=== PATIENT | female | born 1935 | race Caucasian/White ===

== ENCOUNTER 2024-01-26 13:28 | Emergency (ER) | payer OTHER, SELFPAY ==
[2024-01-26 13:37] VITALS: BP 133/64; BMI 21.6
[2024-01-26 14:38] LABS: % Basophils 0.5 % (0-2); % Eosinophils 1.1 % (0-6); % Immature Granulocytes 0.3 % (0-0.5); % Lymphocytes 28.6 % (20.5-51.1); % Monocytes 11.2 % (1.7-9.3); % Neutrophils 58.3 % (42.2-75.2); Absolute Eosinophils 0.1 10^3/uL (0-0.7); Absolute Lymphocytes 2.1 10^3/uL (1.2-3.4); Absolute Monocytes 0.8 10^3/uL (0.1-0.6); Absolute Neutrophils 4.3 10^3/uL (1.4-6.5); Hematocrit 33.3 % (37.0-47.0); Hemoglobin 11.8 g/dL (12.0-16.0); Mean Corp Hgb Conc. 35.4 g/dL (33.0-37.0); Mean Corpuscular Hgb 31.5 pg (27.0-31.0); Mean Corpuscular Volume 88.8 fL (81.0-99.0); Mean Platelet Volume 9.5 fL (7.4-10.4); Nucleated Red Blood Cells % 0 %; Platelet Count 198 10^3/uL (130-400); Red Blood Cell Count 3.75 10^6/uL (4.20-5.40); Red Cell Dist. Width 12.5 % (11.5-14.5); White Blood Cell Count 7.3 10^3/uL (4.8-10.8)
--- NOTE | 2024-01-26 14:51 | ED.GENMED ---
History of Present Illness
General
Chief Complaint: Change in Mental Status
Source: patient and family (Sister and daughter at bedside)
Exam Limitations: none
Time Seen by Provider: 01/26/24 14:10
Nursing documentation reviewed up to this point in time: agreed with
Travel History
Have you had any contact with someone who has COVID-19?: No
Do you have any symptoms of coronavirus? Fever > 100 degrees, chills, cough, shortness of breath, sore throat, loss of taste or smell, muscle aches, or headache?: No
History of Present Illness
History of Present Illness:
88-year-old female with history of dementia, CAD, HTN, HLD, GERD presents from home where she lives with her daughter because family are concerned that she has been hallucinating for the past week. She she tells them that she sees people coming and
taking her furniture, she went outside during the night and carried outside furniture into the house. She said they put a hole in her roof and put bugs in the fans etc.
Patient is followed by Dr. Garza neurology for her dementia whom she saw about 10 days ago and everything was 'fine' per family
Has appt. with PCP Dr. Brewer in 8 days but her hallucinations and behavior (not sleeping at night) are worse.
No new medications.
Patient is very pleasant, demented, she states she is here 'because I guess of my memory or something.' She denies headache, she denies recent falls, denies chest pain or trouble breathing. She denies abdominal pain, N/V/C/D.
Past History
Past History
ED Past Medical History: CAD, GERD, HTN and Hypercholesterolemia
ED Past Surgical History: , Gynecological and Orthopedic
Review of Systems
Review of Systems
Allergies reviewed?: Yes
All Other Systems: ROS reviewed and negative except as documented in HPI and ROS
Constitutional: Denies fever or fatigue
Respiratory: Denies trouble breathing
Cardiac: Denies chest pain
ABD/GI: Denies abdominal pain, nausea, vomiting or diarrhea
: Denies dysuria, frequency, difficulty voiding or urgency
Musculoskeletal: Denies edema
Skin: Reports no symptoms
Phy Exam
Physical Exam
Physical Exam:
GENERAL: No acute distress. A&Ox2.
CONSTITUTIONAL: Afebrile.
EYES: clear, conjunctivae normal
ENMT: moist mucus membranes, Pharynx nl
RESPIRATORY: Regular respirations, nonlabored, lungs clear.
CARDIOVASCULAR: Regular rate and rhythm, no murmurs, no rubs.
GI: Soft, nontender, normal BS
MUSCULOSKELETAL: Moves with ease. Well perfused.
SKIN: Warm, dry, pink
PSYCH: Normal mood and affect. Well kept, interactive and appropriate
NEUROLOGIC: Awake, alert and oriented to name and place. No focal neurological deficits. Ambulates well with normal gait.
Course
Orders/Labs/Results
Orders:
Orders
01/26/24 14:22
Complete Blood Count/With Diff Urgent
Comprehensive Metabolic Panel Urgent
01/26/24 14:59
Urinalysis Reflex To Culture Urgent
Date Specimen was Collected: 01/26/24
Time Specimen was Collected: 14:56
Abnormal Lab Results
01/26/24
14:22
RBC 3.75 L 10^6/uL
(4.20-5.40)
Hgb 11.8 L g/dL
(12.0-16.0)
Hct 33.3 L %
(37.0-47.0)
MCH 31.5 H pg
(27.0-31.0)
Absolute Monos (auto) 0.8 H 10^3/uL
(0.1-0.6)
Monocytes % 11.2 H %
(1.7-9.3)
Sodium 134 L mmol/L
(135-145)
BUN 26 H mg/dl
(7-17)
01/26/24 14:22
01/26/24 14:22
Vital Signs
Initial and Last Documented VS:
Initial Vital Signs
Temp Pulse Resp BP Pulse Ox
98 F 52 16 133/64 98
01/26/24 13:37 01/26/24 13:37 01/26/24 13:37 01/26/24 13:37 01/26/24 13:37
Last Documented Vital Signs
Temp Pulse Resp BP Pulse Ox
98 F 52 16 133/64 98
01/26/24 13:37 01/26/24 13:37 01/26/24 13:37 01/26/24 13:37 01/26/24 13:37
MDM/Problems Addressed
Differential Diagnosis Includes:
UTI, progressive dementia
MDM/Problems Addressed:
88-year-old female with history of dementia, CAD, HTN, HLD, GERD presents from home where she lives with her daughter because family are concerned that she has been hallucinating for the past week. She she tells them that she sees people coming and
taking her furniture, she went outside during the night and carried outside furniture into the house. She said they put a hole in her roof and put bugs in the fans etc.
Patient is followed by Dr. Garza neurology for her dementia whom she saw about 10 days ago and everything was 'fine' per family
Has appt. with PCP Dr. Brewer in 8 days but her hallucinations and behavior (not sleeping at night) are worse.
No new medications.
Patient is very pleasant, demented, she states she is here 'because I guess of my memory or something.' She denies headache, she denies recent falls, denies chest pain or trouble breathing. She denies abdominal pain, N/V/C/D.
Afebrile, NAD, patient ambulating well to bathroom and back
01/26/2024 1605 PM
CBC with no clinically significant abnormality
CMP with no clinically significant abnormality other than mild elevation in BUN at 26, will encourage p.o. fluids
UA no sign of infection
Sister with her who is her POA is satisfied with the workup.
Patient ambulated out with normal gait on discharge
Chronic conditions affecting care: Psychiatric illness (Dementia)
*Critical Care Note
Total Time (30-74mins, 75-104mins- exclusive of procedures): Not Applicable
ED Attending Note
-
Portions of this chart may have been created with voice recognition software.� Occasional wrong word or��sound alike� substitutions may have occurred due to the inherent limitations of voice recognition software.
Discharge Plan
Departure
Patient Disposition: Home (Routine Discharge)
Date of Disposition: 01/26/24
Time of Disposition: 16:08
Patient with high blood pressure during this ER visit?: No
Condition: Good
Discharge Problem:
Dementia
Instructions: Dementia (DC)
Prescriptions:
No Action
amlodipine 10 MG tablet
10 mg PO DAILY
lisinopril 40 MG tablet
40 mg PO DAILY
brimonidine 1 DROP drops
1 drp BOTH EYES BID
Azo Bladder Control 300 mg Capsule
1 cap PO BID Qty: 0
Patient Comments:
with meals
clopidogrel 75 MG tablet
75 mg PO DAILY Qty: 30 2RF
pantoprazole 40 MG tablet,delayed release (DR/EC)
40 mg PO DAILY Qty: 30 2RF
latanoprost 0.005 % drops
1 drp BOTH EYES HS
atorvastatin 20 mg tablet
20 mg PO DAILY
donepezil 10 mg tablet
10 mg PO HS
propranolol 10 mg tablet
20 mg PO BID@0800,1700
omega-3 fatty acids-fish oil 684-1,200 mg Capsule,Delayed Release(Dr/Ec)
1 cap PO DAILY
lorazepam 1 MG tablet
1 mg PO HS Qty: 5 0RF
Referrals:
Sana Scott PA-C [Family Provider] - Keep scheduled appt
Activity Restrictions/Additional Instructions:
As we discussed, there is no sign of a urinary tract infection. His lab work is unremarkable.
Most likely progression of her dementia.
Interventions
Interventions:
*Risk Screen - Suicide Last Done: 01/26/24 13:37
*Neglect/Abuse Screening Last Done: 01/26/24 13:37
ED- Fall Risk Assessment Last Done: 01/26/24 16:37
*ED COVID-19 Vaccine History Last Done: 01/26/24 13:37
*Nursing Disposition Last Done: 01/26/24 16:37
ED- Neurological Assessment Last Done: 01/26/24 14:43
Discharge Date and Time
Discharge Date/Time: 01/26/24 16:38
[2024-01-26 14:56] LABS: ALT (SGPT) 22 U/L (0-35); AST (SGOT) 28 U/L (14-36); Albumin 4.1 g/dl (3.5-5.0); Alkaline Phosphatase 64 U/L (38-126); Blood Urea Nitrogen 26 mg/dl (7-17); Calcium 9.5 mg/dl (8.4-10.2); Carbon Dioxide 27 mmol/L (22-30); Chloride 104 mmol/L (98-107); Estimated Creatinine Clearance 38 ml/min; Glucose 98 mg/dl (70-99); Potassium 4.1 mmol/L (3.5-5.1); Sodium 134 mmol/L (135-145); Total Bilirubin 0.5 mg/dl (0.2-1.3); Total Protein 6.4 g/dl (6.3-8.2); eGFR > 60.00
[2024-01-26 15:12] LABS: Urine Albumin Negative (Neg - Trace); Urine Bilirubin Negative (Negative); Urine Character Clear (Clear); Urine Color Yellow; Urine Glucose Negative (Negative); Urine Ketone Negative (Negative); Urine Leukocyte Negative (Negative); Urine Nitrite Negative (Negative); Urine Occult Blood Negative (Negative); Urine Urobilinogen Negative (Neg - 1+)
--- NOTE | 2024-01-28 14:32 | EDRN ---
I received a call from the patient's sister reporting that the patient left the ED with her capped IV in place in her arm. The patient removed the IV the following day on 01/27/24. I spoke with the patient's daughter by phone who explained that she
applied a bandaid to the IV site yesterday and removed it today. The daughter reports that she does not see any bruising, redness, swelling, or drainage from the IV. I offered to examine the IV site in the ED but family declined at this time.
== END 2024-01-26 16:38 | disposition home or self-care (01) ==
LOC: EMR 13:28
PROVIDERS: Registered Nurse; EMERGENCY PHYSICIAN Student in an Organized Health Care Education/Training Program; FAMILY PHYSICIAN Physician Assistant Medical
DX: F03.90 Unspecified dementia, unspecified severity, without behavioral disturbance, psychotic disturbance, mood disturbance, and anxiety (principal); I10 Essential (primary) hypertension; I25.10 Atherosclerotic heart disease of native coronary artery without angina pectoris; E78.00 Pure hypercholesterolemia, unspecified; K21.9 Gastro-esophageal reflux disease without esophagitis
CPT/HCPCS: 99283; 80053; 81003; 85025

== ENCOUNTER 2024-03-09 20:16 | Observation (INO) | payer OTHER, SELFPAY ==
[2024-03-09] VITALS (9 sets, daily range): BP systolic 118–150; BP diastolic 49–111; BMI 21.6
[2024-03-09 16:38] LABS: % Basophils 0.5 % (0-2); % Eosinophils 2.4 % (0-6); % Immature Granulocytes 0.4 % (0-0.5); % Lymphocytes 16.1 % (20.5-51.1); % Monocytes 7.9 % (1.7-9.3); % Neutrophils 72.7 % (42.2-75.2); Absolute Eosinophils 0.2 10^3/uL (0-0.7); Absolute Lymphocytes 1.3 10^3/uL (1.2-3.4); Absolute Monocytes 0.7 10^3/uL (0.1-0.6); Hematocrit 36.4 % (37.0-47.0); Hemoglobin 12.3 g/dL (12.0-16.0); Mean Corp Hgb Conc. 33.8 g/dL (33.0-37.0); Mean Corpuscular Hgb 31.1 pg (27.0-31.0); Mean Corpuscular Volume 91.9 fL (81.0-99.0); Mean Platelet Volume 9.3 fL (7.4-10.4); Nucleated Red Blood Cells % 0 %; Platelet Count 207 10^3/uL (130-400); Red Blood Cell Count 3.96 10^6/uL (4.20-5.40); Red Cell Dist. Width 12.9 % (11.5-14.5); White Blood Cell Count 8.2 10^3/uL (4.8-10.8)
[2024-03-09 17:03] LABS: Blood Urea Nitrogen 24 mg/dl (7-17); Calcium 9.3 mg/dl (8.4-10.2); Carbon Dioxide 27 mmol/L (22-30); Chloride 108 mmol/L (98-107); Glucose 104 mg/dl (70-99); Sodium 136 mmol/L (135-145); eGFR > 60.00
--- NOTE | 2024-03-09 18:28 | ED.GENMED ---
History of Present Illness
General
Chief Complaint: Change in Mental Status
Time Seen by Provider: 03/09/24 18:26
Travel History
Have you had any contact with someone who has COVID-19?: No
Do you have any symptoms of coronavirus? Fever > 100 degrees, chills, cough, shortness of breath, sore throat, loss of taste or smell, muscle aches, or headache?: No
History of Present Illness
History of Present Illness:
HPI: Patient presents from home with her sister due to increased somnolence. She has a history of dementia. She no longer is on Aricept. She had been on Zyprexa which was stopped. Then Seroquel [address] Garza. Seroquel was recently
decreased from 25 mg to 12.5 mg.
EXAM:
GENERAL: The patient appears sedate with a GCS of 2+2+5 = 9
HEENT: Slightly dry oral mucosa
CARDIOVASCULAR: No murmurs, normal heart rate, regular rhythm, No chest wall tenderness
PULMONARY: No respiratory distress, breath sounds are clear and equal
ABDOMEN: Soft with no peritoneal signs, no tenderness
NEUROLOGIC: Markedly decreased strength all extremities equally, the patient primarily keeps her eyes closed but does respond to sternal rub
PSYCHIATRIC: The patient is currently nonverbal and provides no meaningful history
EXTREMITIES: Nontender, no edema, moves all extremities equally
SKIN: No rash, no lesions
TIME OF INITIAL ENCOUNTER: 6:40 PM
NUMBER AND COMPLEXITY OF PROBLEMS ADDRESSED AT THE ENCOUNTER
� Chronic conditions affecting care: Dementia, CAD, high blood pressure, hyperlipidemia, GERD
� Acute Exacerbation and/or Progression of Chronic Illness: This is an acute problem
� Differential Diagnosis includes: Medication side effect, worsening dementia, toxic metabolic encephalopathy, UTI
AMOUNT AND/OR COMPLEXITY OF DATA TO BE REVIEWED AND ANALYZED
� I performed an independent evaluation of and my interpretation is:
EKG:
CT:
X-rays:
Laboratory Studies: CBC unremarkable, chemistries relatively unremarkable however the BUN to creatinine ratio is somewhat high. Urinalysis shows no evidence for infection.
Other:
� Review of other/old records: I reviewed old CT brain, the patient was admitted for worsening dementia in March 2023
� Clinical information was obtained by an independent historian: I spoke to the sister and the daughter at bedside
� Prescriptions/Medications Considered but not given:
� Further testing considered but not performed: Considered CT brain�I reviewed records CT of the brain from less than 1 year ago showed no acute abnormality
RISK OF COMPLICATIONS AND/OR MORBIDITY OR MORTALITY OF PATIENT MANAGEMENT
� Social determinants of health affecting care:
� Discussion with other providers: Discussed case with Dr. Drew who recommends patient stay in the hospital for further management. He also recommends every other day dosing for the Seroquel at 12.[address] Gordon for admission.
� Escalation of care including admission/observation vs risk of discharge considered: The patient appears rather sedate with GCS initially of 9. She does respond more during urinary catheterization. I suspect that her
presentation is related to Seroquel use. Family tells me that she does very poorly regarding hallucinations before the Seroquel as she was going outside with knives.
Past History
Past History
ED Past Medical History: CAD, GERD, HTN and Hypercholesterolemia
ED Past Surgical History: , Gynecological and Orthopedic
Phy Exam
Physical Exam
Physical Exam:
See HPI
Course
Orders/Labs/Results
Orders:
Orders
03/09/24 16:27
Basic Metabolic Panel Urgent
Complete Blood Count/With Diff Urgent
03/09/24 18:29
0.9% Sodium Chloride 500 ml [Nss] 500 ml IV BOLUS
03/09/24 18:48
Straight cath- Treatment ONCE
03/09/24 19:04
Urinalysis Reflex To Culture Urgent
Date Specimen was Collected: 03/09/24
Time Specimen was Collected: 18:48
04/22/24 19:59
Admit/Transfer Patient As Directed
Co-Sign Provider:
Level of Care: Observation services
Assign to:: Medical/Surgical
Physician / Group: Evan
Diagnosis: Med Effect / Lethargy
03/09/24 20:00
Code Status As Directed
Resuscitation Status: Do not resuscitate
Reached after discussion with pt or family/Healthcare POA: Yes
03/09/24 20:03
DNR Bracelet Application ONCE
Abnormal Lab Results
03/09/24 03/09/24
16:27 19:04
RBC 3.96 L 10^6/uL
(4.20-5.40)
Hct 36.4 L %
(37.0-47.0)
MCH 31.1 H pg
(27.0-31.0)
Absolute Monos (auto) 0.7 H 10^3/uL
(0.1-0.6)
Lymphocytes % 16.1 L %
(20.5-51.1)
Chloride 108 H mmol/L
(98-107)
BUN 24 H mg/dl
(7-17)
Glucose 104 H mg/dl
(70-99)
Urine Ketones Trace A
(Negative)
03/09/24 16:27
03/09/24 16:27
Vital Signs
Initial and Last Documented VS:
Initial Vital Signs
Temp Pulse Resp BP Pulse Ox
98.7 F 52 18 140/51 98
03/09/24 16:15 03/09/24 16:15 03/09/24 16:15 03/09/24 16:15 03/09/24 16:15
Last Documented Vital Signs
Temp Pulse Resp BP Pulse Ox
98.1 F 60 20 134/52 98
03/09/24 19:10 03/09/24 20:15 03/09/24 19:45 03/09/24 20:00 03/09/24 20:15
*Critical Care Note
Total Time (30-74mins, 75-104mins- exclusive of procedures): Not Applicable
ED Attending Note
-
Portions of this chart may have been created with voice recognition software.� Occasional wrong word or��sound alike� substitutions may have occurred due to the inherent limitations of voice recognition software.
Discharge Plan
Departure
Patient Disposition: Admit
Date of Disposition: 03/09/24
Time of Disposition: 18:50
Presentation/result/management discussed w/ accepting MD/DO: Hospitalist
Discharge Problem:
Acute alteration in mental status
Interventions
Interventions:
*Risk Screen - Suicide Last Done: 03/09/24 16:15
*General Assessment Last Done: 03/09/24 16:15
*Neglect/Abuse Screening Last Done: 03/09/24 16:15
ED- Fall Risk Assessment Last Done: 03/09/24 16:15
*ED COVID-19 Vaccine History Last Done: 03/09/24 16:15
ED- Neurological Assessment Last Done: 03/09/24 16:15
ED Swallowing Screen Last Done: 03/09/24 18:00
[2024-03-09] MEDS: NSS 500 IV (18:37)
[2024-03-09 19:12] LABS: Urine Albumin Negative (Neg - Trace); Urine Bilirubin Negative (Negative); Urine Character Clear (Clear); Urine Color Yellow; Urine Glucose Negative (Negative); Urine Ketone Trace (Negative); Urine Leukocyte Negative (Negative); Urine Nitrite Negative (Negative); Urine Occult Blood Negative (Negative); Urine Specific Gravity 1.015 (<1.030); Urine Urobilinogen Negative (Neg - 1+)
--- NOTE | 2024-03-09 20:04 | HPS.HSE ---
Family Physician
-
Family Physician: Sana Scott PA-C
Chief Complaint
-
Lethargy
History of Present Illness
Patient is an 88y F with PMH significant for aortic stenosis s/p TAVR and dementia with behavioral disturbance who presents to ED for evaluation of lethargy. History obtained from family at the bedside. Patient has been followed by Dr. Garza for
dementia with behavioral issues. She was previously on Aricept. Family noted increased agitation, increased hallucination, paranoia and restlessness over the past several weeks.
She was briefly placed on Zyprexa, but this reportedly did not help. Family states that patient went 3 days with increased agitation and did not sleep at all.
Patient was started on quetiapine 12.5mg nightly on 03/06/24. Aricept was discontinued. Patient was to take this dose x 7 days then increase to 25mg.
However, patient became very sleepy after her initial doses and has been very lethargic / sleepy for the past 3 days or so.
She has had some L torticollis - apparently due to sleep positioning.
Today family brought her into the hospital for further evaluation given lethargy.
Note that she is also prescribed Ativan which she is taking at bedtime in addition to the quetiapine.
Medical History
Past Medical History
Past Medical History: Reports Other
Additional Past Medical History:
Coronary Artery Disease
Moderate/Severe Aortic Stenosis s/p TAVR
Essential Hypertension
Hyperlipemia
Essential Tremor
Dementia with Behavioral Disturbance
Generalized Anxiety Disorder
Past Surgical History: Reports Other
Additional Past Surgical History:
TAVR
Hysterectomy
Right Arm Fracture
Social History
Tobacco: Non-smoker
Alcohol: None
Living: Alone
Family History
Family History: Not pertinent
Allergies / Home Medications
Allergies reflects when Allergies were last updated in [facility].
Home Medications with original date entered in [facility]
Allergy/Medication List:
Allergies
Allergy/AdvReac Type Severity Reaction Status Date / Time
trazodone Allergy pat not Verified 01/26/24 13:37
aware of
this
Home Medications
amlodipine 10 mg tablet 10 mg PO DAILY Blood pressure 11/14/20
brimonidine 0.2 % eye drops 1 drp BOTH EYES BID Eye condition 11/14/20
lisinopril 40 mg tablet 40 mg PO DAILY Blood pressure 11/14/20
pantoprazole 40 mg tablet,delayed release 40 mg PO DAILY #30 tabs 01/20/21
atorvastatin 20 mg tablet 20 mg PO DAILY High cholesterol 03/18/23
latanoprost 0.005 % eye drops 1 drp BOTH EYES HS Eye condition 03/18/23
omega-3 fatty acids-fish oil 684 mg-1,200 mg capsule,delayed release 1 cap PO DAILY High cholesterol 03/18/23
propranolol 10 mg tablet 20 mg PO BID@0800,1700 Blood pressure 03/18/23
lorazepam 1 mg tablet 1 mg PO HS Mental Health/Anxiety #5 tabs 03/20/23
acetaminophen 500 mg tablet 1,000 mg PO Q6H PRN mild pain/fever 03/09/24
aspirin 81 mg tablet,delayed release 81 mg PO DAILY 03/09/24
lorazepam 1 mg tablet 1 mg PO HS PRN sleep (extra dose if needed) 03/09/24
quetiapine 25 mg tablet 12.5 mg PO HS 03/09/24
Review of Systems
-
History Source: Patient and Family
A 12 point ROS was completed and negative except as noted: Yes
Constitutional: Denies Fever or Chills
Respiratory: Denies Cough or Trouble Breathing
Cardiac: Denies Chest Pain or Palpitations
Abdomen/GI: Denies Abdominal Pain, Nausea, Vomiting or Diarrhea
: Denies Flank Pain or Bleeding
Musculoskeletal: Reports Other (Neck pain - improving.)
Neurological: Denies Dizzy or Headache
Psych: Reports Anxiety, Dementia and Audio or Visual Hallucinations
Physical Exam
Vital Signs
Vital Signs
Temp Pulse Resp BP Pulse Ox
98.1 F 62 12 138/57 98
03/09/24 19:10 03/09/24 19:17 03/09/24 19:00 03/09/24 19:17 03/09/24 19:17
Physical Exam
General: Other (88y F in no acute distress. Patient wakes immediately when addressed and answers questions / follows commands - though she is significnatly confused as per her baseline.)
HEENT: Moist mucous membranes and PERRLA
Respiratory: Clear; No Wheezes, Rales or Rhonchi
Cardiac: S1/S2, Regular Rhythm and Murmur (III/ ZEB)
GI: Soft, Non Tender, Non Distended and Normal Bowel Sounds
Musculoskeletal: No Clubbing, No Cyanosis and No Edema
Neuro: Awake, Alert and Nonfocal/grossly intact; No Oriented
Laboratory Results
-
03/09/24 16:27
03/09/24 16:27
Laboratory Results
Total Bilirubin Cancelled 03/09/24 16:27
AST Cancelled 03/09/24 16:27
ALT Cancelled 03/09/24 16:27
Alkaline Phosphatase Cancelled 03/09/24 16:27
Impression/Plan
-
A/P: Patient is an 88y F with PMH significant for s/p TAVR and dementia who agitation who presents to ED for evaluation of lethargy.
Altered Mental Status
TME secondary to Med Effect
Senile Dementia with Behavioral Disturbance
- Observe overnight for further evaluation.
- Increased lethargy over the past 3 days is likely combination of med effects (Ativan and quetiapine) and preceding sleep deprivation (no sleep x 3 days per family).
- Seems that quetiapine has actually had the desired effect.
- Will hold this evening's dose - unless patient becomes agitated / anxious in which case I would give it.
- Stop Ativan.
- Neurology eval in the AM for additional recommendations.
- PT / OT evals.
- CM eval - ? if placement would be option for this patient with progressive dementia and family having difficulty caring for her at home.
ASCVD
Aortic Stenosis s/p TAVR
-Stable. Continue aspirin and statin.
Essential Hypertension
-Stable. Continue Amlodipine and Lisinopril with holding parameters.
GERD
-Stable. Continue pantoprazole
Benign Essential Tremor
- Stable. Continue propranolol
DVT prophylaxis: SCDs
Code Status: DNR
[2024-03-09] MEDS: ALPHAGAN 0.2% EYE DROPS 1 DROP BOTH EYES (23:10)
[2024-03-09] MEDS: XALATAN OPHTHALMIC SOLUTION 1 DROP BOTH EYES (23:10)
[2024-03-09 23:41] LABS: TSH Reflex To Free T4 4.48 uIU/ml (0.47-4.68)
--- NOTE | 2024-03-10 | PTCARENOTE ---
Patient admitted to room 405-1. She is awake and alert, oriented to person and place, not to time. Patient confused, she thinks her cat is here, and starts to cry when I tell her the cat is at home with her daughter. She is yelling out, wants to go
home. She did ambulate with 2 assist to the bathroom. Bed alarm intact. Call tran left in patients hand.
[2024-03-10] MEDS: SEROQUEL 12.5 MG PO (01:11)
--- NOTE | 2024-03-10 02:00 | PTCARENOTE ---
Patient continued to yell out and wanted to see her sister. She was tearful. I medicated her with 12.5 of seroquel as ordered prn at 0110. She is presently sleeping.
[2024-03-10 05:53] LABS: Hematocrit 32.4 % (37.0-47.0); Hemoglobin 11.1 g/dL (12.0-16.0); Mean Corp Hgb Conc. 34.3 g/dL (33.0-37.0); Mean Corpuscular Hgb 31.2 pg (27.0-31.0); Mean Platelet Volume 9.2 fL (7.4-10.4); Platelet Count 182 10^3/uL (130-400); Red Blood Cell Count 3.56 10^6/uL (4.20-5.40); Red Cell Dist. Width 12.9 % (11.5-14.5); White Blood Cell Count 5.2 10^3/uL (4.8-10.8)
[2024-03-10 06:28] LABS: Blood Urea Nitrogen 17 mg/dl (7-17); Carbon Dioxide 25 mmol/L (22-30); Chloride 108 mmol/L (98-107); Estimated Creatinine Clearance 48 ml/min; Glucose 74 mg/dl (70-99); Potassium 3.7 mmol/L (3.5-5.1); Sodium 137 mmol/L (135-145); eGFR > 60.00
[2024-03-10 07:55] VITALS: BP 133/50
[2024-03-10] MEDS: ASPIR LOW (ENTERIC COATED) 81 MG PO (08:13)
[2024-03-10] MEDS: ZESTRIL 40 MG PO (08:13)
[2024-03-10] MEDS: NORVASC 10 MG PO (08:13)
[2024-03-10] MEDS: ALPHAGAN 0.2% EYE DROPS 1 DROP BOTH EYES (08:13)
[2024-03-10] MEDS: LIPITOR 20 MG PO (08:13)
[2024-03-10] MEDS: INDERAL 20 MG PO (08:13)
--- NOTE | 2024-03-10 08:30 | W.PN.HOSP.TC ---
Today's Communication/Plan
-
Discharge home
Assessment / Plan
Assessment / Plan
HPI: 88y F with PMH significant for aortic stenosis s/p TAVR and dementia with behavioral disturbance who presents to ED for evaluation of lethargy. History obtained from family at the bedside. Patient has been followed by Dr. Garza for dementia
with behavioral issues. She was previously on Aricept. Family noted increased agitation, increased hallucination, paranoia and restlessness over the past several weeks.
She was briefly placed on Zyprexa, but this reportedly did not help. Family states that patient went 3 days with increased agitation and did not sleep at all.
Patient was started on quetiapine 12.5mg nightly on 03/06/24. Aricept was discontinued. Patient was to take this dose x 7 days then increase to 25mg.
However, patient became very sleepy after her initial doses and has been very lethargic / sleepy for the past 3 days or so.
She has had some L torticollis - apparently due to sleep positioning.
Altered Mental Status
TME secondary to Med Effect
Senile Dementia with Behavioral Disturbance
-Secondary to patient taking Ativan 1 mg at bedtime, plus Ativan 1 mg at bedtime as needed, plus starting Seroquel
-Lethargy resolved with holding Ativan/Seroquel last night
-Counseled patient to reduce Ativan to 0.5 mg as needed if still having insomnia 2 hours after taking Seroquel
-Do not exceed more than 0.5 mg of ativan at bedtime
-Medically stable for discharge, follow-up with her PCP in 1 week
-She can resume her Seroquel upon discharge
ASCVD
Aortic Stenosis s/p TAVR
-Stable. Continue aspirin and statin.
Essential Hypertension
-Stable. Continue Amlodipine and Lisinopril with holding parameters.
GERD
-Stable. Continue pantoprazole
Benign Essential Tremor
- Stable. Continue propranolol
DVT prophylaxis: SCDs
Code Status: DNR
Physical Exam
General: Frail, elderly, no acute distress
HEENT: Normocephalic, Atraumatic, EOMI, MMM
Respiratory: Clear to Auscultation bilaterally
Cardiac: Normal S1/S2, Regular Rate and Rhythm
GI: Soft, Nontender, Nondistended, Normal Bowel Sounds
Extremities: No Clubbing, Cyanosis, or Edema
Neuro: Awake, alert. Oriented to person and place, not time
Psych: Calm, Cooperative
Derm: No Visible lesions
Anticipated Discharge: Today
Subjective/Interval History
-
Date of Service: March 10, 2024
Lethargy resolved. Patient awake, alert. She is eating fine. She is ambulating to the bathroom with assistance. She is asking to go home. No fever, no vomiting.
Objective Data
-
Labs:
Laboratory Results
03/10/24
05:41
WBC 5.2
Hgb 11.1 L
Hct 32.4 L
Plt Count 182
Sodium 137
Potassium 3.7
Chloride 108 H
Carbon Dioxide 25
BUN 17
Creatinine 0.6
Glucose 74
Calcium 9.0
Vital Signs:
Vital Signs
Temp Pulse Resp BP Pulse Ox
98.2 F 61 16 118/67 98
03/09/24 22:50 03/09/24 22:50 03/09/24 22:50 03/09/24 22:50 03/10/24 08:00
[2024-03-10 10:51] VITALS: BP 132/61; PULSE 61
[2024-03-10 10:55] VITALS: BP 132/61; PULSE 61; O2SAT 98
[2024-03-10 11:55] VITALS: BP 145/62
--- NOTE | 2024-03-10 13:09 | W.DCSUMMARY ---
Discharge Summary
Discharge Data
Date of Admission: 03/09/24
Date of Discharge: 03/10/24
-
Pending Results: No
Hospital Course
Discharge diagnoses:
Drug-induced encephalopathy
Senile dementia with behavioral disturbance
Coronary artery disease
Aortic stenosis status post surgery
Essential hypertension
Gastroesophageal reflux disease
Benign essential tremor
Head CT:
No evidence of acute intracranial abnormality.
Hospital course:
88-year-old female with a past medical history of senile dementia with behavioral disturbance, coronary artery disease, aortic stenosis status post TAVR, hypertension, GERD, and essential tremor presented with lethargy after being started on
Seroquel at night which she takes with her Ativan 1 mg every night. Patient has been prescribed Ativan 1 mg every night, as well as Ativan 1 mg as needed in addition. She was recently started on Seroquel. Her sister reports that she has been so
lethargic, and sleeping. Head CT is negative for acute intracranial abnormality.
Patient was observed overnight. Her Ativan and Seroquel were held. By the following morning, she was alert, awake, back to her usual mentation. She ambulated with PT and the nurses. She felt well, and requested discharge.
Patient can resume her Seroquel upon discharge. Recommend that she decrease her Ativan to 0.5 mg to be taken as needed for continued insomnia 2 hours after taking her Seroquel. She should not exceed more than 0.5 mg of Ativan at night with her
Seroquel.
Patient is medically stable for discharge. She needs a follow-up with her primary care doctor in 1 week.
Discharge: Home with 24-hour assistance
Discharge planning: Required 34 minutes
Discharge Plan
-
Patient Disposition: Home with Home Care
Discharge Diagnosis/Procedures: Medication induced lethargy, dementia
Condition: Good
Diet: Regular
Activity: As tolerated
Activity Restrictions/Additional Instructions:
Continue Seroquel according to the directions from your primary care provider.
You may take half tablet of Ativan 2 hours after taking your Seroquel as needed for continued insomnia.
Do not exceed half tablet per night.
Follow-up with your primary care provider in 1 week.
Referrals:
Sana Scott PA-C [Family Provider] - in one week
Prescriptions:
New
lorazepam 1 mg tablet
0.5 mg PO HS PRN (Reason: insomnia) Qty: 30 0RF
Continued
amlodipine 10 MG tablet
10 mg PO DAILY
lisinopril 40 MG tablet
40 mg PO DAILY
brimonidine 1 DROP drops
1 drp BOTH EYES BID
pantoprazole 40 MG tablet,delayed release (DR/EC)
40 mg PO DAILY Qty: 30 2RF
latanoprost 0.005 % drops
1 drp BOTH EYES HS
atorvastatin 20 mg tablet
20 mg PO DAILY
propranolol 10 mg tablet
20 mg PO BID@0800,1700
omega-3 fatty acids-fish oil 684-1,200 mg Capsule,Delayed Release(Dr/Ec)
1 cap PO DAILY
quetiapine 25 mg tablet
12.5 mg PO HS
Patient Comments:
03/09/2024: take 1/2 (12.5mg) at night for 7 days (started 03/06/24) then increased to 1 tab (25mg) at night
acetaminophen 500 mg Tablet
1,000 mg PO Q6H PRN (Reason: mild pain/fever)
aspirin 81 mg Tablet,Delayed Release (Dr/Ec)
81 mg PO DAILY
Discontinued
lorazepam 1 MG tablet
1 mg PO HS Qty: 5 0RF
Patient Comments:
03/09/2024: last filled 02/10/24, 60 tabs for 30 days from [facility][id number]
lorazepam 1 mg Tablet
1 mg PO HS PRN (Reason: sleep (extra dose if needed))
Patient Comments:
03/09/2024: last filled 02/10/24, 60 tabs for 30 days from [facility][id number]
Discharge Orders:
Discharge Patient (As Directed); Ordered 03/10/24
Ordered By: Simon Jordan
Discharge Date and Time
Discharge Date/Time: 03/10/24 14:15
Print Language: POLISH
--- NOTE | 2024-03-10 15:36 | CM ---
Alert awake oriented patient who lives daughter Milagro in a 2 story home with 2 step to enter and 12 steps to bed room . She is assisted and all activities of daily living.Offered VN she requested [facility] Liaison made aware via TT.Family will drive
her home.She uses a cane.Lott letter given explained. Copy signed on chart.
[facility] , [facility]
Pharmacy [facility]
PCP Dr Scott
PLAN Home with [facility] if accepted
--- NOTE | 2024-03-10 16:18 | VNURNOTE ---
Home Health Liaison spoke with patient by phone at 1615 to discuss [facility] nurse/therapy, visits, schedule and homebound status. Patient is agreeable and understands that visits at home will be 2-3 x per week to assess and teach medical management.
Patient is aware that [facility] will contact them for start of care in 1-2 days after discharge from .
[facility] referral completed in [facility].
== END 2024-03-10 14:15 | disposition home health service (06) ==
LOC: 4 EAST ACU 20:16
PROVIDERS: ADMITTING PHYSICIAN Hospitalist; ATTENDING PHYSICIAN Family Medicine; EMERGENCY PHYSICIAN Emergency Medicine; FAMILY PHYSICIAN Physician Assistant Medical
DX: F03.918 Unspecified dementia, unspecified severity, with other behavioral disturbance (principal); G92.8 Other toxic encephalopathy; R53.83 Other fatigue; T43.595A Adverse effect of other antipsychotics and neuroleptics, initial encounter; Y92.9 Unspecified place or not applicable; F05 Delirium due to known physiological condition; G47.00 Insomnia, unspecified; I10 Essential (primary) hypertension; G25.0 Essential tremor; R45.1 Restlessness and agitation; F41.1 Generalized anxiety disorder; I25.10 Atherosclerotic heart disease of native coronary artery without angina pectoris; K21.9 Gastro-esophageal reflux disease without esophagitis; Z66 Do not resuscitate; Z95.2 Presence of prosthetic heart valve; Z88.8 Allergy status to other drugs, medicaments and biological substances; Z79.82 Long term (current) use of aspirin
CPT/HCPCS: 51701; 80048; 81003; 84443; 85025; 85027; 96361; 97162; 97166; 99285; G0378